=== PATIENT | female | born 2000 | race Caucasian/White ===

== ENCOUNTER 2020-04-06 11:25 | Emergency (ER) | payer OTHER ==
[2020-04-06] MEDS ORDERED: DEXAMETHASONE SOD PHOS INJ 10 MG/1 ML VIAL IM ONE (12:25)
[2020-04-06] MEDS ORDERED: LIDOCAINE 2% VISCOUS SOLN 15 ML UDCUP PO ONE (12:26)
--- NOTE | 2020-04-06 12:35 | ER Document Report ---
ED ENT - General Chief Complaint: Sore Throat Stated Complaint: SORE THROAT,CONGESTION,EAR PAIN Time Seen by Provider: 04/06/20 12:24 Primary Care Provider: EVAN RICHARDS MD [Primary Care Provider] - Follow up as needed - HPI Notes: 19-year-old patient presents to ED for evaluation of sore throat for the last 2 days. Patient reports pressure to bilateral ears. Reports pain with swallowing, however denies any difficulties breathing or handling secretions. Denies any productive cough. Denies any ear pain, fevers, chills, nausea, vomiting, chest pain, shortness of breath, neck pain or rash. Patient denies recent travel, recent sick contacts, or concerns for COVID. - Related Data Allergies/Adverse Reactions: No Known Allergies Allergy (Unverified 04/06/20 12:06) Past Medical History - Social History Smoking Status: Never Smoker Chew tobacco use (# tins/day): No Frequency of alcohol use: None Drug Abuse: None Family History: None Patient has homicidal ideation: No Review of Systems - Review of Systems Notes: Constitutional: Negative for fever. HENT: + for sore throat. Eyes: Negative for visual changes. Cardiovascular: Negative for chest pain. Respiratory: Negative for shortness of breath. Gastrointestinal: Negative for abdominal pain, vomiting or diarrhea. Genitourinary: Negative for dysuria. Musculoskeletal: Negative for back pain. Skin: Negative for rash. Neurological: Negative for headaches, weakness or numbness. 10 point ROS negative except as marked above and in HPI. Physical Exam - Vital signs Vitals: Temp Pulse Resp BP Pulse Ox 98.4 F 87 16 109/68 100 04/06/20 11:28 04/06/20 11:28 04/06/20 11:28 04/06/20 11:28 04/06/20 11:28 General: No acute distress. Alert and oriented x3. Sitting comfortably in a stretcher. Skin: No jaundice, pallor, petechiae, or rashes. Warm and dry. HEENT: Normocephalic, atraumatic. Pupils are equal round reactive to light and accommodation. Extraocular movements are intact. TMs without erythema or bulging. Canals are clear. Nares patent without any discharge. Teeth in good condition. Pharynx with erythema, edema, and exudates. Mucous membranes moist. Bilateral tonsillar enlargement with exudates. Uvula is midline. Airway is patent. Neck: Supple with bilateral anterior cervical lymphadenopathy. Full range of motion. Heart: Regular rate and rhythm. S1,S2. No murmurs, rubs, or gallops. Lungs: Clear to auscultation bilaterally. No wheezes, rhonchi, rales. Equal chest expansion. No retractions. Neuro: GCS 15. Moving all extremities without discomfort. Course - Re-evaluation Re-evalutation: 04/06/20 14:33 19-year-old patient presents to ED for evaluation of sore throat for the last 2 days. Patient was evaluated with rapid strep which was negative for bacterial pharyngitis. Cultures are pending at this time and patient will be notified of positive results. On physical exam, patient is found to have an erythematous and edematous bilaterally tonsillar enlargement with exudates. Patient thus meets 3/4 [facility] Criteria and thus will be started on treatment for bacterial pharyngitis. Pain less likely secondary to otitis media or otitis externa. Patient started on amoxicillin and viscous lidocaine. Patient instructed to follow-up with PCP in the next 2-3 days. Patient understands indications to return to the ER. Patient is agreeable with this plan. - Vital Signs Vital signs: Temp Pulse Resp BP Pulse Ox 98.4 F 87 16 109/68 100 04/06/20 11:28 04/06/20 11:28 04/06/20 11:28 04/06/20 11:28 04/06/20 11:28 - Laboratory Results Critical Laboratory Results Reviewed: No Critical Results - Radiology Results Critical Radiology Results Reviewed: No Critical Results Discharge - Discharge Clinical Impression: Strep throat Condition: Stable Disposition: HOME, SELF-CARE Instructions: Strep Throat ([facility]) Prescriptions: Amoxicillin 1 tab PO TID #30 tab Prednisone [Deltasone 20 mg Tablet] 2 tab PO DAILY 5 Days #20 tablet Forms: Return to Work Referrals: EVAN RICHARDS MD [Primary Care Provider] - Follow up as needed
[2020-04-06] MEDS ORDERED: AMOXICILLIN TRIHYDRATE 500 MG CAPSULE PO ONE (14:09)
[2020-04-06 14:54] VITALS: BP 110/70
== END 2020-04-06 14:45 | disposition home or self-care (01) ==
LOC: ER 11:25
DX: J02.0 Streptococcal pharyngitis (principal)
CPT/HCPCS: 99284; 96372; 87070; 87880; J3490; J1100